=== PATIENT | male | born 1970 | race African-American/Black ===

== ENCOUNTER 2025-05-03 18:10 | Emergency (ER) | payer MEDICAID, OTHER ==
[~2025-05-03] VITALS: Ht 188 cm; Wt 100.0 kg
[2025-05-03 18:17] VITALS: O2SAT 100
[2025-05-03] MEDS: SODIUM CHLORIDE 0.9% 1,000 ML IV ONE ×2 (19:23→23:31)
[2025-05-03 19:38] LABS: BASOPHILS % 0.7 % (0.0-2.0); EOSINOPHILS % 0.3 % (0.0-5.0); HEMATOCRIT. 36.1 % (42.0-52.0); HEMOGLOBIN. 12.3 g/dL (14.0-18.0); LYMPHOCYTES % 13.2 % (20.0-50.0); MEAN PLATELET VOLUME 5.9 fl (7.4-10.4); MONOCYTES % 6.9 % (2.0-8.0); NEUTROPHILS % 78.9 % (40.0-76.0); PLATELET 318 x1000/uL (130-400); RED BLOOD CELL COUNT 3.81 mill/uL (4.7-6.1); RED CELL DISTRIBUTION WIDTH 13.6 % (11.6-14.6)
[2025-05-03 19:45] LABS: CREATININE 0.6 mg/dL (0.6-1.3); UREA NITROGEN BLOOD 5 mg/dL (9-23)
[2025-05-03 19:46] LABS: ETHANOL BLOOD < 10 mg/dL (<10); TROPONIN I HIGH SENSITIVITY 25 ng/L (3.0-53)
[2025-05-03] MEDS ORDERED: SODIUM CHLORIDE 0.9% 1,000 ML IV ONE (20:30)
[2025-05-03] MEDS: CHLORDIAZEPOXIDE 25MG CAPSULE PO ONE (21:45)
[2025-05-03] MEDS: LORAZEPAM 1MG TABLET PO ONE (23:31)
[2025-05-03 23:32] LABS: *AMPHETAMINES SCREEN URINE NEGATIVE (NEGATIVE)
[2025-05-03 23:33] LABS: *BARBITURATES SCREEN URINE NEGATIVE (NEGATIVE); *BENZODIAZEPINES SCREEN URINE NEGATIVE (NEGATIVE); *COCAINE SCREEN URINE NEGATIVE (NEGATIVE); CANNABINOID URINE SCREEN NEGATIVE (NEGATIVE); ECSTASY MDMA SCREEN URINE NEGATIVE (NEGATIVE); METHADONE URINE SCREEN NEGATIVE (NEGATIVE); OPIATES URINE SCREEN NEGATIVE (NEGATIVE); PHENCYCLIDINE URINE SCREEN NEGATIVE (NEGATIVE)
[2025-05-04] MEDS ORDERED: CHLO5CAP3 MT (00:06)
[2025-05-04 00:28] LABS: CLARITY URINE CLEAR (CLEAR); COLOR URINE YELLOW (YELLOW); PH URINE 5.0 (4.5-8.0); SPECIFIC GRAVITY URINE 1.014 (1.005-1.030)
[2025-05-04 00:29] LABS: GLUCOSE URINE NEGATIVE (NEGATIVE); KETONES URINE NEGATIVE (NEGATIVE); LEUKOCYTE ESTERASE URINE NEGATIVE (NEGATIVE); NITRITE URINE NEGATIVE (NEGATIVE); OCCULT BLOOD URINE NEGATIVE (NEGATIVE); PROTEIN URINE NEGATIVE (NEGATIVE); UROBILINOGEN URINE 0.2 E.U./dL (0.2-1.0)
[2025-05-04] MEDS: POTASSIUM CHLORIDE 20MEQ/PACKET PO ONE (00:58)
[2025-05-04 01:00] VITALS: BP 152/88; PULSE 108; RESP 16; TEMP 36.8; O2SAT 100
== END 2025-05-04 01:12 | disposition home or self-care (01) ==
LOC: ER 18:10
DX: R42 Dizziness and giddiness (principal); F10.939 Alcohol use, unspecified with withdrawal, unspecified; Z79.899 Other long term (current) drug therapy; Y90.9 Presence of alcohol in blood, level not specified
CPT/HCPCS: 80305; 80048; 81003; 80320; 85025; 84484; 36415; 93005; 96360; 96361; 99285; J7030; G0480

== ENCOUNTER 2025-06-25 20:45 | Emergency (ER) | payer MEDICAID ==
[~2025-06-25] VITALS: Ht 177.8 cm; Wt 95.0 kg
[~2025-06-25 20:45] MED LIST: ALBU18HF2 IH; CHOL-36 PO; DILT30TA37 MT; FOLI-43 MT; L10 PO; LOSA50TA41 PO; MULT-230 MT; OMEP20CA14 PO; THIA100T88 MT
[2025-06-25 20:53] VITALS: O2SAT 100
[2025-06-25 22:56] VITALS: BP 129/84; PULSE 85; RESP 12; TEMP 37.2; O2SAT 99
== END 2025-06-26 00:46 | disposition home or self-care (01) ==
LOC: ER 21:01
DX: R09.89 Other specified symptoms and signs involving the circulatory and respiratory systems (principal); J45.909 Unspecified asthma, uncomplicated; Z79.899 Other long term (current) drug therapy; W44.F3XA Food entering into or through a natural orifice, initial encounter; Y93.89 Activity, other specified; Y92.89 Other specified places as the place of occurrence of the external cause; Y99.8 Other external cause status
CPT/HCPCS: 99283

== ENCOUNTER 2025-06-28 04:04 | Emergency (ER) | payer MEDICAID ==
[~2025-06-28] VITALS: Ht 188 cm; Wt 95.0 kg
[2025-06-28 04:07] VITALS: O2SAT 98
[2025-06-28 05:24] VITALS: BP 132/81; PULSE 80; RESP 18; TEMP 36.7; O2SAT 100
== END 2025-06-28 05:52 | disposition home or self-care (01) ==
LOC: ER 04:04
DX: R09.89 Other specified symptoms and signs involving the circulatory and respiratory systems (principal); J45.909 Unspecified asthma, uncomplicated; Z79.899 Other long term (current) drug therapy; Y90.9 Presence of alcohol in blood, level not specified
CPT/HCPCS: 70360; 99283

== ENCOUNTER 2025-07-13 17:41 | Emergency (ER) | payer MEDICAID ==
[~2025-07-13] VITALS: Ht 182.9 cm; Wt 70.0 kg
[2025-07-13 17:45] VITALS: BP 127/80; PULSE 88; RESP 22; TEMP 37; O2SAT 100
== END 2025-07-13 19:20 | disposition home or self-care (01) ==
LOC: ER 17:41
DX: F41.1 Generalized anxiety disorder (principal); J45.909 Unspecified asthma, uncomplicated; F10.90 Alcohol use, unspecified, uncomplicated; Z79.899 Other long term (current) drug therapy; Y90.9 Presence of alcohol in blood, level not specified
CPT/HCPCS: 71045; 99283

== ENCOUNTER 2025-10-07 10:02 | Emergency (ER) | payer MEDICAID ==
[~2025-10-07] VITALS: Ht 185.4 cm; Wt 90.0 kg
[2025-10-07 10:04] VITALS: O2SAT 99
[2025-10-07] MEDS: HYDROXYZINE 25MG TABLET PO SCH (11:54)
[2025-10-07] MEDS: HYDROXYZINE 25MG TABLET PO ONE (11:54)
[2025-10-07 12:10] LABS: BASOPHILS % 0.5 % (0.0-2.0); EOSINOPHILS % 0.1 % (0.0-5.0); HEMATOCRIT. 36.7 % (42.0-52.0); HEMOGLOBIN. 12.1 g/dL (14.0-18.0); LYMPHOCYTES % 18.9 % (20.0-50.0); MEAN PLATELET VOLUME 6.3 fl (7.4-10.4); MONOCYTES % 5.7 % (2.0-8.0); NEUTROPHILS % 74.8 % (40.0-76.0); PLATELET 448 x1000/uL (130-400); RED BLOOD CELL COUNT 4.19 mill/uL (4.7-6.1); RED CELL DISTRIBUTION WIDTH 15.1 % (11.6-14.6)
[2025-10-07 12:24] LABS: CREATININE 0.8 mg/dL (0.6-1.3); ETHANOL BLOOD < 10 mg/dL (<10); UREA NITROGEN BLOOD < 5 mg/dL (9-23)
[2025-10-07 12:26] LABS: TROPONIN I HIGH SENSITIVITY < 4 ng/L (3.0-53)
[2025-10-07 15:53] LABS: TROPONIN I HIGH SENSITIVITY < 4 ng/L (3.0-53)
[2025-10-07] MEDS ORDERED: HYDR-459 MT (16:08)
[2025-10-07 16:19] VITALS: BP 127/90; PULSE 84; RESP 18; TEMP 36.7; O2SAT 98
== END 2025-10-07 16:20 | disposition home or self-care (01) ==
LOC: ER 10:02
DX: F41.9 Anxiety disorder, unspecified (principal); R07.89 Other chest pain; R06.02 Shortness of breath; E11.9 Type 2 diabetes mellitus without complications; J45.909 Unspecified asthma, uncomplicated; F10.90 Alcohol use, unspecified, uncomplicated; Z79.899 Other long term (current) drug therapy; Y90.9 Presence of alcohol in blood, level not specified
CPT/HCPCS: 80048; 80320; 83880; 85025; 84484; 36415; 71045; 93005; 99285; Z7610; G0480

== ENCOUNTER 2025-10-14 11:33 | Emergency (ER) | payer MEDICAID ==
[~2025-10-14] VITALS: Ht 177.8 cm; Wt 70.0 kg
[~2025-10-14 11:33] MED LIST changes: +HYDR-459 MT
[2025-10-14 11:39] VITALS: O2SAT 100
[2025-10-14] MEDS: PANTOPRAZOLE 80 MG in SODIUM CHLORIDE 0.9% 100 ML IV ONE (11:45)
[2025-10-14 12:20] LABS: BASOPHILS % 0.7 % (0.0-2.0); EOSINOPHILS % 0.3 % (0.0-5.0); HEMATOCRIT. 36.7 % (42.0-52.0); HEMOGLOBIN. 12.1 g/dL (14.0-18.0); LYMPHOCYTES % 19.4 % (20.0-50.0); MEAN PLATELET VOLUME 6.2 fl (7.4-10.4); MONOCYTES % 5.6 % (2.0-8.0); NEUTROPHILS % 74.0 % (40.0-76.0); PLATELET 442 x1000/uL (130-400); RED BLOOD CELL COUNT 4.09 mill/uL (4.7-6.1); RED CELL DISTRIBUTION WIDTH 14.7 % (11.6-14.6)
[2025-10-14 12:35] LABS: CREATININE 0.8 mg/dL (0.6-1.3); UREA NITROGEN BLOOD < 5 mg/dL (9-23)
[2025-10-14 12:36] LABS: PROTEIN TOTAL 8.1 g/dL (6.0-8.3)
[2025-10-14 12:37] LABS: ASPARTATE AMINOTRANSFERASE 23 IU/L (<34); BILIRUBIN DIRECT 0.3 mg/dL (<=3.0)
[2025-10-14 12:38] LABS: BILIRUBIN TOTAL 0.9 mg/dL (0.1-1.0)
[2025-10-14 12:55] LABS: INR 1.0
[2025-10-14] MEDS: LORAZEPAM 2MG/ML UD SYRINGE IV NR (12:55)
[2025-10-14] MEDS ORDERED: OMEP40CA20 MT (13:27)
[2025-10-14 15:37] VITALS: BP 106/84; PULSE 87; RESP 15; TEMP 37.2; O2SAT 100
== END 2025-10-14 15:38 | disposition home or self-care (01) ==
LOC: ER 11:33 → CANBEDREQ 13:32 → ER 15:38
DX: K27.9 Peptic ulcer, site unspecified, unspecified as acute or chronic, without hemorrhage or perforation (principal); F41.9 Anxiety disorder, unspecified; J45.909 Unspecified asthma, uncomplicated; F10.20 Alcohol dependence, uncomplicated; Z79.899 Other long term (current) drug therapy; Y90.9 Presence of alcohol in blood, level not specified
CPT/HCPCS: 99284; 96365; 96375; 80076; 80048; 83690; 85025; 85610; 85730; 86850; 86900; 86901; 36415; J2060; J2470; J7050